=== PATIENT | female | born 1970 | race African-American/Black ===

== ENCOUNTER 2017-08-11 19:02 | Emergency (ER) | payer OTHER ==
[2017-08-11] MEDS ORDERED: diphenhydrAMINE HCl 50 MG/ML 1 ML VIAL ONE (20:40)
[2017-08-11] MEDS ORDERED: Metoclopramide HCl 10 MG/2 ML VIAL ONE (20:40)
[2017-08-11] MEDS ORDERED: Ketorolac Tromethamine 30 MG/ML VIAL ONE (20:40)
[2017-08-11 21:18] LABS: Anion Gap 12 mmol/L (10-20); BUN (Urea Nitrogen) 9 mg/dL (7.0-18.7); Calc. Creatinine Clearance 0 mL/min (70-130); Calcium 9.3 mg/dL (7.8-10.44); Carbon Dioxide 29 mmol/L (22-29); Chloride 101 mmol/L (98-107); Estimated GFR-MDRD Greater than 90
[2017-08-11 21:20] LABS: Band 2 % (5-11); Hematocrit 41.7 % (36.0-47.0); Mean Platelet Volume 8.6 fL (7.4-10.4); Neutrophil 40 % (42-75); Reactive Lymphocytes 3 % (0-10); Red Blood Cell (RBC) Count 4.87 mill/uL (4.20-5.40); White Blood Cell (WBC) Count 7.3 thou/uL (4.8-10.8)
[2017-08-11] MEDS ORDERED: Morphine Sulfate 2 MG/ML SYRINGE ONE (22:55)
== END 2017-08-11 23:57 | disposition home or self-care (01) ==
LOC: ERS 19:02
DX: M75.92 Shoulder lesion, unspecified, left shoulder (principal); M06.9 Rheumatoid arthritis, unspecified; E11.40 Type 2 diabetes mellitus with diabetic neuropathy, unspecified; J44.9 Chronic obstructive pulmonary disease, unspecified; G43.909 Migraine, unspecified, not intractable, without status migrainosus; F31.9 Bipolar disorder, unspecified; F41.9 Anxiety disorder, unspecified; F17.210 Nicotine dependence, cigarettes, uncomplicated; Z79.899 Other long term (current) drug therapy
CPT/HCPCS: 80048; 85025; 96365; 96375; J1200; J1885; J2270; J2765

== ENCOUNTER 2017-10-06 13:48 | Observation (INO) | payer OTHER ==
[2017-10-06 14:15] LABS: #Lymphocytes 3.4 thou/uL (1.20-3.40); #Monocytes 0.4 thou/uL (0.11-0.59); #Neutrophils 3.1 thou/uL (1.40-6.50); %Basophils 0.1 % (0.0-1.0); %Eosinophils 0.7 % (0.0-10.0); %Lymphocytes 49.9 % (21.0-51.0); Hematocrit 41.6 % (36.0-47.0); Mean Platelet Volume 8.9 fL (7.4-10.4); Red Blood Cell (RBC) Count 4.79 mill/uL (4.20-5.40); White Blood Cell (WBC) Count 6.9 thou/uL (4.8-10.8)
[2017-10-06] MEDS ORDERED: Acetaminophen 500 MG TAB ONE (14:15)
[2017-10-06] MEDS ORDERED: Clopidogrel Bisulfate 75 MG TAB ONE (14:15)
[2017-10-06] MEDS ORDERED: Nitroglycerin 2% Ointment 1 INCH/1 GM Packet ONE (14:15)
[2017-10-06 14:34] LABS: Troponin I Less than 0.010 ng/mL (< 0.028)
--- NOTE | 2017-10-06 14:38 | RAD ---
SINGLE VIEW OF THE CHEST: COMPARISON: 09/25/15. HISTORY: Chest pain that began 40 minutes prior to arrival. FINDINGS: Single view of the chest shows a normal sized cardiomediastinal silhouette. There is no evidence of c onsolidation, mass, or pleural effusion. The bones are unremarkable. IMPRESSION: No evidence of acute cardiopulmonary disease. POS: [facility]
[2017-10-06 15:13] LABS: ALT (SGPT) 10 U/L (8-55); AST (SGOT) 13 U/L (5-34); Alkaline Phosphatase 83 U/L (40-150); Anion Gap 10 mmol/L (10-20); BUN (Urea Nitrogen) 9 mg/dL (7.0-18.7); Bilirubin, Total 0.2 mg/dL (0.2-1.2); CK (CPK) 97 U/L (29-168); Calc. Creatinine Clearance 0 mL/min (70-130); Carbon Dioxide 25 mmol/L (22-29); Chloride 104 mmol/L (98-107); Estimated GFR-MDRD Greater than 90; Lipase 15 U/L (8-78); Protein, Total 7.6 g/dL (6.0-8.3)
[2017-10-06] MEDS ORDERED: Bisacodyl 5 MG TAB PO PRN (17:00)
[2017-10-06] MEDS ORDERED: Dextrose 5% in Water 1,000 ML IV PRN (17:00)
[2017-10-06] MEDS ORDERED: Acetaminophen 325 MG TAB PO PRN (17:00)
[2017-10-06] MEDS ORDERED: Dextrose 50% Abboject 50 ML SYRINGE SLOW IVP PRN (17:00)
[2017-10-06] MEDS ORDERED: HumaLOG 300 UNITS/3 ML VIAL SC PRN (17:00)
[2017-10-06 17:03] VITALS: BMI 34.8
[2017-10-06] MEDS ORDERED: Lidocaine 2% Viscous Solution 20 ML, Aluminum & Magnesium Hydroxide 30 ML, Donnatal Eli... SSW SCH ×3 (17:15)
[2017-10-06 18:13] LABS: Hemoglobin A1c 8.6 % (4.0-6.0)
[2017-10-06 18:30] LABS: Magnesium 2.9 mg/dL (1.6-2.6); Phosphorus 2.8 mg/dL (2.3-4.7)
[2017-10-06 18:35] LABS: Troponin I 0.011 ng/mL (< 0.028)
--- NOTE | 2017-10-06 19:20 | HP-2 ---
CODE STATUS: FULL. PRIMARY CARE PHYSICIAN: Dr. Shine Conn. ATTENDING PHYSICIAN: Kevin Reeves M.D. RESIDENT PHYSICIAN: Winsome Diehl DO CHIEF COMPLAINT: Chest pain. HISTORY OF PRESENT ILLNESS: This is a 47-year-old female with past medical history of uncontrolled diabetes mellitus type 2, tobacco abuse, hyperlipidemia, hypertension, COPD that presents with substernal chest pain with sudden onset at 1300. This afternoon, the pain did start at rest and radiated to the right breast. Associated symptoms include abdominal pain and bloating. The patient denied any nausea, vomiting, diarrhea or diaphoresis. She also denied any shortness of breath. The patient states that the pain was relieved after she took some Tylenol and was given medication by EMS. The patient was given nitro and aspirin. The patient has had similar pain previously. Her last stress test was in 09/2017, which was normal at that time. Of note, the patient has had a lot of stress and anxiety recently. She is going through a divorce currently and has been very emotional. She was very emotional with onset of this chest pain. The patient also endorses a 30-pound weight loss over the last 2-3 months due to decreased appetite. PAST MEDICAL HISTORY: 1. COPD. 2. Uncontrolled diabetes mellitus type 2. 3. Bipolar disorder. 4. Tobacco abuse. 5. Gastroesophageal reflux disease. 6. Rheumatoid arthritis. 7. Fibromyalgia. 8. Migraines. 9. Irritable bowel syndrome. 10. Grade 1/3 diastolic congestive heart failure with preserved ejection fraction detected on last echo 09/29/2015. 11. Hyperlipidemia. 12. Hypertension. PAST SURGICAL HISTORY: 1. x1. 2. Ex-lap x2. 3. Hysterectomy in 2001. 4. History of uterine cancer. 5. Several ganglion cyst removal. ALLERGIES: 1. MORPHINE. 2. BACTRIM. 3. TORADOL. 4. SEROQUEL. 5. PROPRANOLOL. 6. IBUPROFEN. MEDICATIONS: 1. Xanax 2 mg daily. 2. Protonix 40 mg daily. 3. Symbicort 80/4.5 mcg 2 puffs inhalation daily. 4. Xopenex 0.63/3 mL 2 puffs q.6 hours as needed. 5. Mirtazapine 50 mg daily. 6. Dicyclomine 10 mg p.r.n. q.6 hours. 7. Gabapentin 300 mg at bedtime. 8. Zofran 4 mg p.r.n. 9. Glimepiride 1 mg. Of note, the patient is noncompliant with medications. She only takes them when she sees necessary. FAMILY HISTORY: Father with a myocardial infarction at age 56 and hypertension , and her mother with diabetes and hypertension. SOCIAL HISTORY: The patient has a greater than half pack per day tobacco use, [id number] history. She uses alcohol occasionally and has a history of marijuana abuse. REVIEW OF SYSTEMS: A 12 point review of systems was performed and were negative except as listed in HPI and as indicated below. The patient does endorse nasal congestion and cough. PHYSICAL EXAMINATION: VITAL SIGNS: Blood pressure 131/76, pulse 64, respiration rate 22, T-max 98.1, pulse ox 98% on room air. Current weight 91 kilograms. GENERAL: The patient is alert and oriented x3, no acute distress, well developed, well nourished, obese. She does have some tangential thinking. EYES: Pupils equally round, reactive to light and accommodation. Extraocular muscles intact. Conjunctivae within normal limits. ENT: Nasal mucosa within normal limits. NECK: Supple. CARDIOVASCULAR: Regular rate and rhythm. No murmurs or gallops. Radial and pedal pulses 2+. RESPIRATORY: Normal respiratory effort, no retractions, clear to auscultation bilaterally. SKIN: Warm and dry. No cyanosis. No lesions. ABDOMEN: Soft, mildly tender to palpation in the left lower quadrant. Bowel sounds present in all 4 quadrants. No masses or distention. EXTREMITIES: No clubbing, cyanosis or edema. MUSCULOSKELETAL: Structure within normal limits. Tone within normal limits. Muscle strength 5/5. Full range of motion. NEUROLOGIC: No focal deficits. Cranial nerves II-XII intact. GCS 15. PSYCHIATRIC: Tangential speaking. LABORATORY DATA: 1. CBC reveals a white blood cell count 6.9, hemoglobin 13.3, hematocrit 41.6, platelets 194. 2. CMP reveals sodium 135, potassium 4.0, chloride 104, bicarbonate 25, BUN 9, creatinine 7.75, glucose of 251, calcium 9.0, total protein 7.6, albumin 3.6, total bilirubin 0.2, AST 13, ALT 10, and alkaline phosphatase of 83. 3. CK 97. 4. CK-MB 0.8, troponin less than 0.01. 5. Lipase 15. 6. Chest x-ray no evidence of acute cardiopulmonary disease. 7. EKG: There is normal sinus rhythm. 8. Last stress test done in 2014. ASSESSMENT AND PLAN: This is a 47-year-old female with past medical history of uncontrolled diabetes mellitus, hypertension, hyperlipidemia, and tobacco abuse that presents with chest pain. 1. Atypical chest pain. Admit to observations, trend cardiac enzymes. Hemoglobin A1c, TSH, magnesium, phosphate and fasting lipid panel are pending. The patient will have a nuclear stress test in the a.m. She was given a consistent carb diet and will be made n.p.o. at midnight. The patient does have a heart score of 3. Last hemoglobin A1c was in 02/2017, it was 9.1 at that time. Continue ASA daily. 2. Diabetes mellitus type 2, uncontrolled. Hemoglobin A1c pending. The patient needs to be started on a statin and EMILIE-I. We will restart home medications. The patient was placed on mild sliding scale insulin and hypoglycemia protocol. 3. Chronic obstructive pulmonary disease. We will continue the patient on home medications and start DuoNebs p.r.n. 4. Tobacco abuse. The patient had nicotine patch p.r.n. 5. Hyperlipidemia. The patient not currently on statin therapy. We will consider adding to regimen. 6. Obesity. Counseled on diet and exercise. 7. Diastolic congestive heart failure with preserved ejection fraction. Last echo done in 09/2015. The patient not currently being treated for heart failure. 8. Bipolar disorder, not currently being treated. 9. Deep venous thrombosis prophylaxis, SCDs. DISPOSITION AND LENGTH OF HOSPITAL STAY: 2 days. Symptomatic medications will be provided. History and physical exam as well as management discussed with Dr. Kevin Reeves. YUE
[2017-10-06] MEDS ORDERED: PROVENTIL INHALER 6.7 G (200 INHALATIONS) INH PRN (20:25)
[2017-10-06] MEDS ORDERED: Topiramate 25 MG TAB PO PRN (20:25)
[2017-10-06] MEDS ORDERED: Dicyclomine 20 MG TAB PO PRN (20:25)
[2017-10-06] MEDS ORDERED: Ondansetron ODT 4 MG TAB PO PRN (20:25)
[2017-10-06 20:46] LABS: Troponin I Less than 0.010 ng/mL (< 0.028)
[2017-10-06] MEDS ORDERED: Gabapentin 300 MG CAP PO SCH (21:00)
[2017-10-06] MEDS ORDERED: Cyclobenzaprine 10 MG TAB PO PRN (22:39)
--- NOTE | 2017-10-07 06:15 | PDOC.FM ---
- Subjective Subjective: Patient states she had a good night. She denies any further episodes of chest pain. Her only complaint this morning is a cough. She denies any n/v/d. She denies sob, fever, or chills. She is waiting for the stress test this morning. - Objective Vital Signs & Weight: Vital Signs (12 hours) Temp Pulse Resp BP Pulse Ox 10/07/17 04:30 97.8 F 64 18 103/54 L 95 10/06/17 20:00 97.5 F L 69 16 10/06/17 19:22 97.5 F L 69 16 111/57 L 95 Weight Admit Weight 97.976 kg Weight 97.976 kg I&O: 10/05/17 10/06/17 10/07/17 06:59 06:59 06:59 Intake Total 240 Balance 240 Result Diagrams: 10/06/17 14:02 10/06/17 14:32 Phys Exam - Physical Examination HEENT: PERRLA, moist MMs Neck: no nodes, no JVD Respiratory: no wheezing, clear to auscultation bilateral Cardiovascular: RRR, no significant murmur Gastrointestinal: soft, non-tender, no distention, positive bowel sounds Musculoskeletal: no edema, pulses present Neurological: non-focal, normal sensation, moves all 4 limbs Psychiatric: normal affect, A&O x 3 Skin: no rash Dx/Plan (1) Atypical chest pain Code(s): R07.89 - OTHER CHEST PAIN Status: Acute Plan: -Plan for NM stress this AM. -If normal patient will be discharged home. (2) DM2 (diabetes mellitus, type 2) Status: Acute Plan: -HgbA1C 8.6 -SSI and accuchecks (3) COPD (chronic obstructive pulmonary disease) Status: Acute Plan: -Continue home medications (4) HLD (hyperlipidemia) Code(s): E78.5 - HYPERLIPIDEMIA, UNSPECIFIED Status: Acute Plan: -Will initiate Statin therapy (5) Obesity Code(s): E66.9 - OBESITY, UNSPECIFIED Status: Acute Plan: -Counseled on diet and exercise (6) Diastolic CHF Code(s): I50.30 - UNSPECIFIED DIASTOLIC (CONGESTIVE) HEART FAILURE Status: Acute Plan: -Last echo in 2014 -Not currently symptomatic -Will recommend outpatient follow up. (7) Bipolar disorder Code(s): F31.9 - BIPOLAR DISORDER, UNSPECIFIED Status: Acute Plan: -Not currently medicated. -Will recommend outpatient follow up for this. - Plan Plan: Patient can be discharged today if stress is normal.
[2017-10-07] MEDS ORDERED: Mometasone/Formoterol 120 PUFF INHALER INH SCH (06:30)
[2017-10-07 07:45] VITALS: TEMP 97.6
[2017-10-07] MEDS ORDERED: Lorazepam 0.5 MG TAB PO PRN (08:57)
[2017-10-07] MEDS ORDERED: Aspirin 81 mg Enteric Coated Tablet PO SCH (09:00)
[2017-10-07] MEDS ORDERED: Mirtazapine 15 MG TAB PO SCH (09:00)
[2017-10-07 11:49] VITALS: BP 112/57
--- NOTE | 2017-10-07 11:56 | NM ---
CARDIAC PERFUSION SCAN: Technique: Patient was given 9.4 mCi Technetium 99M Sestamibi for rest imaging and 31 mCi for stress imaging. History: Chest pain. FINDINGS: Patient was stressed according the [place] scan protocol. Left ventricle was imaged with SPECT imaging a nd CT attenuation images obtained. Normal activity is seen throughout the left ventricle on stress and rest images. No evidence of rever sible ischemia. Wall motion is normal. Ejection fraction recorded at 64%. IMPRESSION: Negative Sestamibi stress test. POS: [facility]
--- NOTE | 2017-10-07 12:15 | ADD-PRG ---
DATE OF SERVICE: 10/07/2017 This is an addendum to the note of Dr. Demario Appiah. Ms. Burnett is a 47-year-old black female patient with a history of poorly controlled type 2 diabete s, tobacco abuse, hyperlipidemia, hypertension and COPD. She presented with substernal chest pain as sociated with some abdominal pain and bloating. She denied any nausea, vomiting or diaphoresis. She has been admitted for nuclear stress testing. Thus far, her troponins are less than 0.01 x3. He r BMP shows a sodium 135, potassium 4, chloride 104, bicarbonate 25, anion gap 10, BUN 9, creatinine 0.79. Glucose 251. Her admission EKG was normal showing no ischemic changes. After her nuclear str ess test she can be discharged and/or taken to cardiac catheterization depending on the results.
[2017-10-07] MEDS ORDERED: Regadenoson 0.4 MG/5 ML SYRINGE ONE (17:48)
--- NOTE | 2017-10-07 18:20 | DIS-2 ---
DATE OF ADMISSION: 10/06/2017 DATE OF DISCHARGE: 10/07/2017 RESIDENT: Demario Appiah M.D. ADMITTING ATTENDING: Hal Leger M.D. DISCHARGE ATTENDING: Hal Leger M.D. CONSULTATIONS: None. PROCEDURES: The patient did have a chest x-ray on 10/06/2017 that showed normal size cardiomediastinal silhouette. There is no evidence of consolidation mass or pleural effusion. The bones are unremarkable. She also underwent a stress test nuclear medicine on 10/07/2017 that showed a negative sestamibi stress test that showed normal activity seen throughout the left ventricle on stress and rest imaging, no evidence of reversible ischemia, wall motion is normal, ejection fraction recorded at 64%. PRIMARY DIAGNOSES: 1. Atypical chest pain. 2. Diabetes mellitus, type 2. 3. Chronic obstructive pulmonary disease. 4. Hyperlipidemia. 5. Obesity. 6. Diastolic congestive heart failure. 7. Bipolar disorder. DISCHARGE MEDICATIONS: 1. Atorvastatin 40 mg. 2. Lisinopril 5 mg. 3. Xopenex 15 grams inhaler. 4. Zofran 4 mg. 5. Symbicort 60 mg/4.5 mg. 6. Alprazolam 2 mg t.i.d. 7. [place] 10/325 mg. 8. Glimepiride 1 mg. 9. Mirtazapine 15 mg. 10. Gabapentin 300 mg. 11. Flexeril 10 mg t.i.d. 12. Topiramate 25 mg b.i.d. 13. Protonix 40 mg. 14. Bentyl 10 mg. DISCONTINUED MEDICATIONS: None. HISTORY OF PRESENT ILLNESS AND HOSPITAL COURSE: This is a 47-year-old - Syrian female with past medical history of uncontrolled diabetes mellitus type 2, tobacco abuse, hyperlipidemia, hypertension, COPD that presents with substernal chest pain that began suddenly at 1300. This afternoon the pain did start at rest and radiated to the right breast. Associated symptoms include abdominal pain, bloating. The patient denied any nausea, vomiting, diarrhea or diaphoresis. The patient also denied any shortness of breath. The patient states the pain was relieved after she took Tylenol and was given medication by EMS. The patient was given nitroglycerin and aspirin. The patient has had similar pain previously. Her last stress test was in 09/2017, which was normal at that time. Of note, the patient has had lot of stress and anxiety recently. She is going through divorce, currently has been very emotional. She was very emotional with the onset of this chest pain. The patient also endorses 30 pound weight loss for the last 2-3 months due to decreased appetite. During this hospitalization, the patient was asymptomatic, did not have any of the pain, recurrence. She had notable lab values of troponin I of less than 0.01 x2 and also had a hemoglobin A1c of 8.6. A triglyceride level of 248, TSH of 1.149, magnesium of 2.9, phosphorus of 2.8 and a creatinine that was 0.79. The patient otherwise had no other complications of his hospitalization. The patient underwent a nuclear medicine stress test that showed no reversible ischemia and ejection fraction of 64%. The patient's only complaint during the hospitalization was a cough, but that did not need to be treated at this time. The patient was not on a statin therapy since she is a diabetic we did initiate statin therapy going forward as an outpatient for her to follow up with her PCP. She was also started on an EMILIE inhibitor, specifically lisinopril for her diastolic heart failure that was diagnosed previously going forward as well as for diabetes and kidney function. Again, the patient tolerated the hospitalization well and was discharged on appropriate condition. DISPOSITION: Stable. DISCHARGE INSTRUCTIONS: 1. Location: This patient will be discharged home into her own care. 2. Diet will be a heart healthy diet as well as diabetic diet. 3. Activity will be as tolerated with no restrictions. 4. Follow up will be with her primary care provider, Dr. Conn within 7 days to discuss the initiation of the statin therapy as well as the EMILIE inhibitor and treatments going forward for her chronic conditions. We wish her the best of luck and hope she has no further problems in this condition. YUE
--- NOTE | 2017-10-25 10:49 | STRESS ---
Acquisition Time: 2017-10-07 09:54:17 Total Exercise Time: 00:01:00 Test Indications: CHEST PAIN Medications: Protocol: LEXISC[place] Max HR: 116 BPM 66% of Pred: 175 BPM Max BP: 144/076 mmHG Max Work Load: 1.0 METS RESTING ECG: NORMAL SINUS RHYTHM AT 64 BPM WITH POOR R-WAVE PROGRESSION SYMPTOMS: SHORTNESS OF BREATH NORMAL BP RESPONSE ECTOPY: NONE ECG STRESS: NO SIGNIFICANT CHANGES INTERPRETATION: AWAIT NUCLEAR IMAGES FOR DEFINITIVE DIAGNOSIS Confirmed by ALYSON RAMIREZ (2), film editor supervisor LY MATHEW ([id number]) on 10/25/2017 10:49:21 AM Referred By: MD Atul MIR Confirmed By:ALYSON RAMIREZ
== END 2017-10-07 13:34 | disposition home or self-care (01) ==
LOC: ERS 13:48 → 2SW 15:25
PROVIDERS: ADMIT Family Medicine; ATTEND Family Medicine
DX: R07.89 Other chest pain (principal); J44.9 Chronic obstructive pulmonary disease, unspecified; I11.0 Hypertensive heart disease with heart failure; I50.30 Unspecified diastolic (congestive) heart failure; E78.5 Hyperlipidemia, unspecified; K58.9 Irritable bowel syndrome, unspecified; G43.909 Migraine, unspecified, not intractable, without status migrainosus; M06.9 Rheumatoid arthritis, unspecified; K21.9 Gastro-esophageal reflux disease without esophagitis; F17.200 Nicotine dependence, unspecified, uncomplicated; F31.9 Bipolar disorder, unspecified; E66.9 Obesity, unspecified; Z68.34 Body mass index [BMI] 34.0-34.9, adult; Z79.84 Long term (current) use of oral hypoglycemic drugs; Z79.899 Other long term (current) drug therapy; Z88.5 Allergy status to narcotic agent; Z88.6 Allergy status to analgesic agent; Z88.8 Allergy status to other drugs, medicaments and biological substances; Z98.890 Other specified postprocedural states
CPT/HCPCS: 36415; 36416; 71010; 78452; 80053; 80061; 82550; 82553; 83036; 83690; 83735; 84100; 84443; 84484; 85025; 93005; 93017; 94760; 99406; A4216; A9500; G0378; J2785

== ENCOUNTER 2017-12-09 13:26 | Emergency (ER) | payer OTHER ==
--- NOTE | 2017-12-09 14:16 | RAD ---
CHEST 1 VIEW: HISTORY: Chest pain. COMPARISON: 10/06/17. FINDINGS: Cardiac silhouette is magnified by projection. Pulmonary vasculature is unremarkable. Mediastinum i s midline. No lobar consolidation or evidence of pneumothorax. IMPRESSION: 1. No active cardiopulmonary abnormalities are demonstrated. POS: [facility]
[2017-12-09 14:26] LABS: #Basophils 0.1 thou/uL (0.0-0.2); #Lymphocytes 2.9 thou/uL (1.20-3.40); #Monocytes 0.3 thou/uL (0.11-0.59); #Neutrophils 3.7 thou/uL (1.40-6.50); %Basophils 1.4 % (0.0-1.0); %Eosinophils 0.5 % (0.0-10.0); %Lymphocytes 41.2 % (21.0-51.0); %Monocytes 4.1 % (0.0-10.0); %Neutrophils 52.9 % (42.0-75.0); Hemoglobin 13.8 g/dL (12.0-16.0); Mean Corpuscular HGB CONC 32.2 g/dL (32.0-36.0); Mean Corpuscular Hemoglobin 26.9 pg (27.0-31.0); Mean Corpuscular Volume 83.4 fl (81.0-99.0); Mean Platelet Volume 8.8 fL (7.4-10.4); Platelet Count 211 thou/uL (130-400); RBC Distribution Width 13.6 % (11.5-14.5); Red Blood Cell (RBC) Count 5.14 mill/uL (4.20-5.40)
[2017-12-09 14:32] LABS: PTT 29.8 SEC (22.9-36.1); Prothrombin Time 13.5 SEC (12.0-14.7)
[2017-12-09 14:47] LABS: ALT (SGPT) 15 U/L (8-55); AST (SGOT) 11 U/L (5-34); Albumin 4.1 g/dL (3.5-5.0); Alkaline Phosphatase 106 U/L (40-150); Anion Gap 12 mmol/L (10-20); BUN (Urea Nitrogen) 12 mg/dL (7.0-18.7); Bilirubin, Total 0.3 mg/dL (0.2-1.2); CK (CPK) 163 U/L (29-168); Calc. Creatinine Clearance 0 mL/min (70-130); Calcium 9.6 mg/dL (7.8-10.44); Carbon Dioxide 23 mmol/L (22-29); Chloride 103 mmol/L (98-107); Estimated GFR-MDRD Greater than 90; Globulin 4.1 g/dL (2.4-3.5); Glucose 218 mg/dL (70-105); Lipase 19 U/L (8-78); Potassium 3.8 mmol/L (3.5-5.1); Protein, Total 8.2 g/dL (6.0-8.3); Sodium 134 mmol/L (136-145)
[2017-12-09 14:51] LABS: Troponin I Less than 0.010 ng/mL (< 0.028)
[2017-12-09 16:40] LABS: Troponin I Less than 0.010 ng/mL (< 0.028)
--- NOTE | 2017-12-29 15:12 | EKG ---
Test Reason : Blood Pressure : / mmHG Vent. Rate : 097 BPM Atrial Rate : 097 BPM P-R Int : 152 ms QRS Dur : 072 ms QT Int : 370 ms P-R-T Axes : 054 -06 030 degrees QTc Int : 469 ms Normal sinus rhythm Cannot rule out Anterior infarct , age undetermined Abnormal ECG Confirmed by ZANA NICHOLS ([id number]), associate entertainment editor SOPHIE CINTRON ([id number]) on 12/29/2017 3:12:09 PM Referred By: Confirmed By:ZANA NICHOLS
== END 2017-12-09 17:11 | disposition home or self-care (01) ==
LOC: ERS 13:26
DX: R07.9 Chest pain, unspecified (principal); F41.9 Anxiety disorder, unspecified; E78.5 Hyperlipidemia, unspecified; M06.9 Rheumatoid arthritis, unspecified; J44.9 Chronic obstructive pulmonary disease, unspecified; E11.40 Type 2 diabetes mellitus with diabetic neuropathy, unspecified; G43.909 Migraine, unspecified, not intractable, without status migrainosus; F31.9 Bipolar disorder, unspecified; F17.210 Nicotine dependence, cigarettes, uncomplicated; Z85.42 Personal history of malignant neoplasm of other parts of uterus
CPT/HCPCS: 36415; 71045; 80053; 82550; 82553; 83690; 84484; 85025; 85610; 85730; 93005; 94760

== ENCOUNTER 2018-04-04 13:42 | Outpatient (CLI) | payer OTHER ==
[2018-04-04 14:33] LABS: Hemoglobin 13.9 g/dL (12.0-16.0); Mean Corpuscular HGB CONC 32.3 g/dL (32.0-36.0); Mean Corpuscular Volume 83.6 fl (81.0-99.0); Mean Platelet Volume 8.9 fL (7.4-10.4); Platelet Count 202 thou/uL (130-400); RBC Distribution Width 13.5 % (11.5-14.5); Red Blood Cell (RBC) Count 5.15 mill/uL (4.20-5.40); White Blood Cell (WBC) Count 5.7 thou/uL (4.8-10.8)
== END 2018-04-04 13:43 | disposition home or self-care (01) ==
LOC: LABBT 13:42
PROVIDERS: ATTEND Orthopaedic Surgery
DX: Z01.812 Encounter for preprocedural laboratory examination (principal); G56.02 Carpal tunnel syndrome, left upper limb; M67.432 Ganglion, left wrist
CPT/HCPCS: 85027

== ENCOUNTER → 2018-04-06 | Day surgery (SDC) | payer OTHER ==
[2018-04-04 14:07] VITALS: BMI 32.8
[~2018-04-06] MED LIST: Bupivacaine HCl 0.5%/Epinephrine 1:200,000/PF 30 ml Vial ONE; CEFAZOLIN/Water 2 GM/20 ML SYRINGE ONE; Dexamethasone 20 MG/5 ML VIAL ONE; Fentanyl 100 MCG/2 ML VIAL ONE; HYDROmorphone 0.5 MG/0.5 ML SYRINGE ONE; Lidocaine 1% PF 5 ML VIAL ONE; Midazolam HCl 2 mg/2 ml Vial ONE; Neomycin-Polymyxin 1 ML AMP ONE; Ondansetron HCl/PF 4 MG/2 ML Vial ONE; PROPOFOL 200 MG/20 ML VIAL ONE
--- NOTE | 2018-04-06 17:20 | OP ---
DATE OF OPERATION: 04/06/2018 PREOPERATIVE DIAGNOSES: 1. Carpal tunnel syndrome. 2. Ganglion cyst on the volar radial aspect of the left wrist. POSTOPERATIVE DIAGNOSES: 1. Carpal tunnel syndrome. 2. Ganglion cyst on the volar radial aspect of the left wrist. PROCEDURES: 1. Left carpal tunnel release. 2. Excision of ganglion cyst from the flexor tendon sheath of the flexor carpi radialis tendon of th e left wrist. SURGEON: Toby Kong M.D. ANESTHESIA: General. TECHNIQUE: The patient was given preoperative IV antibiotics, taken to the operating room, placed in the supine position. Satisfactory general anesthesia was performed. The left upper extremity was s terilely prepped and draped in the usual fashion. After exsanguination, the tourniquet was raised to 250 mmHg. Initially, an incision was made longitudinally approximately 1.5 cm in length over the vol ar radial aspect of the left wrist in the area of the flexor carpi radialis tendon. Blunt dissection was made and the small ganglion cyst was identified on the volar and radial aspect of the flexor ten don sheath. This was removed with scissors. The underlying flexure carpi radialis tendon looked becky y healthy. The radial artery was identified and carefully retracted radially out of the way. After the ganglion cyst was completely removed, the wound was irrigated with antibiotic solution and then c losed using 3-0 Rapide. A 14-mm curvilinear incision was then made at the base of the left hand over the carpal canal. Blunt and sharp dissection was made down through the palmar fascia down to the me ludmila nerve using the [employer] [place] carpal tunnel release instruments. The interval between the medi an nerve and the transverse carpal ligament was developed and then between the transverse carpal liga ment and the palmar fascia. The [place] tome scalpel was then used to cut the transverse carpal liga ment, making sure that there was no constrictive tissue into the palm or into the wrist joint. The m edian nerve was directly visualized and was completely freed. The wound was irrigated with antibioti c solution and then closed using 3-0 Rapide. The wounds were then infiltrated with a total of 20 mL of 0.5% Marcaine with epinephrine. Sterile dressing was applied. The patient was awakened, extubate d and transferred to the recovery room in stable condition. ESTIMATED BLOOD LOSS: 25 mL COMPLICATIONS: None. DISCHARGE MEDICATIONS: [place] 10 one every 6 hours as needed for pain, #50. Follow up in my office in 1 week.
== END ==
LOC: SDC 11:53
PROVIDERS: ATTEND Orthopaedic Surgery
PROC: 01N50ZZ Release Median Nerve, Open Approach (ICD-10-PCS; principal; 2018-04-06)
PROC: 0LB60ZZ Excision of Left Lower Arm and Wrist Tendon, Open Approach (ICD-10-PCS; principal; 2018-04-06)
DX: G56.02 Carpal tunnel syndrome, left upper limb (principal); M67.432 Ganglion, left wrist; J45.909 Unspecified asthma, uncomplicated; E11.9 Type 2 diabetes mellitus without complications; M19.90 Unspecified osteoarthritis, unspecified site; Z88.2 Allergy status to sulfonamides; Z88.5 Allergy status to narcotic agent; Z88.8 Allergy status to other drugs, medicaments and biological substances
CPT/HCPCS: 36416; 96374; J0670; J1100; J1170; J2001; J2250; J2405; J2704; J3010

== ENCOUNTER 2018-07-11 13:35 | Outpatient (CLI) | payer OTHER | END 2018-07-11 13:36 | disposition home or self-care (01) | LOC: BICRAD 13:35 | PROVIDERS: ATTEND Family Medicine | DX: M25.562 Pain in left knee (principal); M17.12 Unilateral primary osteoarthritis, left knee ==

== ENCOUNTER 2018-10-11 18:18 | Emergency (ER) | payer OTHER ==
[2018-10-11] MEDS ORDERED: Ondansetron ODT 4 MG TAB ONE (19:24)
[2018-10-11] MEDS ORDERED: Diazepam 5 MG TAB ONE (19:28)
== END 2018-10-11 19:46 | disposition home or self-care (01) ==
LOC: ERS 18:18
DX: M54.12 Radiculopathy, cervical region (principal); E78.5 Hyperlipidemia, unspecified; E11.40 Type 2 diabetes mellitus with diabetic neuropathy, unspecified; J44.9 Chronic obstructive pulmonary disease, unspecified; G43.909 Migraine, unspecified, not intractable, without status migrainosus; F41.9 Anxiety disorder, unspecified; F31.9 Bipolar disorder, unspecified; F17.210 Nicotine dependence, cigarettes, uncomplicated; Z79.899 Other long term (current) drug therapy
CPT/HCPCS: 99283; Q0162

== ENCOUNTER 2019-01-20 17:55 | Emergency (ER) | payer OTHER ==
--- NOTE | 2019-01-20 19:20 | CT ---
FCT head without contrast: Multiple axial tomograms obtained through the head without IV enhancement. INDICATIONS: Headache COMPARISON: None FINDINGS: Ventricles have normal size and position. No evidence of intracranial mass, hemorrhage, edema, or infarct. Visualized sinuses and mastoids appear clear. Bony calvarium appears unremarkable. IMPRESSION: No acute finding
[2019-01-20] MEDS ORDERED: Magnesium 2 GM/50 ML BAG (IN WATER) ONE (19:29)
[2019-01-20] MEDS ORDERED: diphenhydrAMINE 50 MG/ML VIAL ONE (19:29)
[2019-01-20] MEDS ORDERED: Metoclopramide HCl 10 MG/2 ML VIAL ONE (19:29)
[2019-01-20] MEDS ORDERED: Lidocaine 1% (PF) 30 ML VIAL ONE (19:30)
[2019-01-20] MEDS ORDERED: Lidocaine 1% w/Epinephrine 1:100K 20 ML VIAL ONE (19:30)
[2019-01-20 19:42] LABS: #Basophils 0.1 thou/uL (0.0-0.2); #Lymphocytes 3.8 thou/uL (1.20-3.40); #Monocytes 0.4 thou/uL (0.11-0.59); #Neutrophils 3.5 thou/uL (1.40-6.50); %Basophils 1.1 % (0.0-1.0); %Eosinophils 0.6 % (0.0-10.0); %Lymphocytes 48.6 % (21.0-51.0); %Monocytes 5.1 % (0.0-10.0); %Neutrophils 44.6 % (42.0-75.0); Hemoglobin 13.7 g/dL (12.0-16.0); Mean Corpuscular HGB CONC 31.9 g/dL (32.0-36.0); Mean Corpuscular Hemoglobin 27.2 pg (27.0-31.0); Mean Corpuscular Volume 85.2 fL (78.0-98.0); Mean Platelet Volume 8.9 fL (7.4-10.4); Platelet Count 195 thou/uL (130-400); RBC Distribution Width 13.2 % (11.5-14.5); Red Blood Cell (RBC) Count 5.04 mill/uL (4.20-5.40); White Blood Cell (WBC) Count 7.9 thou/uL (4.8-10.8)
[2019-01-20 19:55] LABS: Bilirubin Negative (Negative); Blood, Urine Negative (Negative); Clarity CLEAR (Clear); Glucose, Urine (Dipstick) 100 mg/dL (Negative); Leukocyte Negative (Negative); Nitrite Negative (Negative); Protein, Urine (Dipstick) Negative (Neg-Trace); Specific Gravity, Urine 1.022 (1.002-1.036)
[2019-01-20 20:05] LABS: ALT (SGPT) 12 U/L (8-55); AST (SGOT) 11 U/L (5-34); Albumin 4.1 g/dL (3.5-5.0); Alkaline Phosphatase 89 U/L (40-150); Anion Gap 12 mmol/L (10-20); BUN (Urea Nitrogen) 12 mg/dL (7.0-18.7); Bilirubin, Total 0.3 mg/dL (0.2-1.2); Calc. Creatinine Clearance 0 mL/min (70-130); Calcium 9.7 mg/dL (7.8-10.44); Carbon Dioxide 29 mmol/L (22-29); Chloride 103 mmol/L (98-107); Estimated GFR-MDRD 68; Globulin 3.8 g/dL (2.4-3.5); Glucose 180 mg/dL (70-105); Potassium 4.6 mmol/L (3.5-5.1); Protein, Total 7.9 g/dL (6.0-8.3); Sodium 139 mmol/L (136-145)
[2019-01-20] MEDS ORDERED: Ondansetron PF 4 MG/2 ML Vial ONE (20:20)
== END 2019-01-20 21:10 | disposition home or self-care (01) ==
LOC: ERS 17:55
DX: G43.909 Migraine, unspecified, not intractable, without status migrainosus (principal); E78.5 Hyperlipidemia, unspecified; E11.40 Type 2 diabetes mellitus with diabetic neuropathy, unspecified; J44.9 Chronic obstructive pulmonary disease, unspecified; F41.9 Anxiety disorder, unspecified; F31.9 Bipolar disorder, unspecified; F17.210 Nicotine dependence, cigarettes, uncomplicated; Z79.899 Other long term (current) drug therapy; Z79.51 Long term (current) use of inhaled steroids
CPT/HCPCS: 36415; 70450; 80053; 81003; 85025; 96365; 96367; 96375; J1200; J2001; J2405; J2765; J3475

== ENCOUNTER 2019-08-13 13:41 | Outpatient (CLI) | payer OTHER ==
--- NOTE | 2019-08-13 14:56 | MRI ---
MRI CERVICAL SPINE WITHOUT CONTRAST: DATE: 08/13/2019. COMPARISON: . HISTORY: Neck pain and radiculopathy. TECHNIQUE: Multiplanar multisequence MR imaging of the cervical spine obtained without contrast. FINDINGS: Sagittal STIR imaging demonstrates edematous degenerative endplate change at C4-5 and C6-7. C2-3: There is mild left-sided facet hypertrophy. No central canal or neural foraminal stenosis. C3-4: There is disc space narrowing, disc desiccation, and a small central disc protrusion with parti al effacement of the ventral thecal sac. No significant central canal or right neural foraminal stenosis. Mild left neural foraminal stenosis on the basis of facet and uncovertebral osteophyte form ation. C4-5: There is disc space narrowing with disc desiccation, disc bulge, and a central disc protrusion effacing the ventral thecal sac and abutting the ventral aspect of the cord with mild associated central canal stenosis. No significant neural foraminal stenosis. C5-6: There is disc desiccation, mild disc bulge, and mild disc space narrowing. Partial effacement o f the ventral thecal sac with no associated central canal or neural foraminal stenosis. C6-7: There is disc space narrowing, disc desiccation, and disc bulge present with partial effacement of the ventral thecal sac and mild central canal stenosis. No significant right neural foraminal stenosis. Mild left neural foraminal stenosis noted on the basis of facet and uncovertebral osteophyt e formation. C7-T1: No significant central canal or neural foraminal stenosis. No focal area of abnormal signal intensity is identified within the cervical cord. IMPRESSION: Cervical spine degenerative change as described above. Transcribed Date/Time: 08/13/2019 3:22 PM
--- NOTE | 2019-08-13 15:07 | RAD ---
CERVICAL SPINE: 4 views INDICATIONS:Cervical pain COMPARISON:None FINDINGS: Cervical vertebra maintain normal height and alignment Disc spaces are normally maintained. Posterior elements are normally aligned. Mild degenerative osteophytes from the cervical vertebra and mild facet hypertrophy. Alignment appear s preserved with flexion and extension. No soft tissue abnormality identified. IMPRESSION: Dwpr-wn-bkaeoecy degenerative change
== END 2019-08-13 13:42 | disposition home or self-care (01) ==
LOC: BICMRI 13:41
PROVIDERS: ATTEND Nurse Practitioner Family
DX: M47.22 Other spondylosis with radiculopathy, cervical region (principal)
CPT/HCPCS: 72050; 72141

== ENCOUNTER 2020-03-26 13:50 | Outpatient (CLI) | payer OTHER ==
[~2020-03-26 13:50] MED LIST changes: -Bupivacaine HCl 0.5%/Epinephrine 1:200,000/PF 30 ml Vial ONE; -CEFAZOLIN/Water 2 GM/20 ML SYRINGE ONE; -Dexamethasone 20 MG/5 ML VIAL ONE; -Fentanyl 100 MCG/2 ML VIAL ONE; -HYDROmorphone 0.5 MG/0.5 ML SYRINGE ONE; -Lidocaine 1% PF 5 ML VIAL ONE; +Magnevist 469MG/ML 20 ML VIAL ONE; -Midazolam HCl 2 mg/2 ml Vial ONE; -Neomycin-Polymyxin 1 ML AMP ONE; -Ondansetron HCl/PF 4 MG/2 ML Vial ONE; -PROPOFOL 200 MG/20 ML VIAL ONE
[2020-03-26 14:36] LABS: Estimated GFR-MDRD - POC Greater than 90
--- NOTE | 2020-03-26 16:02 | MRI ---
MRI cervical spine with and without contrast: 03/26/2020 HISTORY: 50-year-old female with provided history of "M 50.90 cervical neck pain with evidence of disc disease " FINDINGS: There is no abnormal signal, abnormal enhancement, or mass, involving the intramedullary, extramedull shanna-intradural, or extradural, spaces. There is heterogeneous bone marrow signal, including diffusely hypointense signal on T1 WI, which is nonspecific, but may represent red marrow conversion (aggressive marrow infiltrative processes are not entirely excluded). Fatty marrow signal at the endplates of C4-5 and C5-6 probably represent [place] type II changes, or alternatively, could represen t areas of relative preservation of fatty marrow. Vertebral body heights are maintained. No major subluxation. Loss of lordosis could represent muscle spasm. Degenerative facet changes bilaterally ar e mostly mild. They are mild to moderate on the right and moderate on the left at C7-T1. Mild disc space narrowing at C4-5, and to a lesser degree C5-6 and C6-7. C1-2: No central stenosis. C2-3: No central or neural foraminal stenosis. C3-4: Small focal central disc disc protrusion, contiguous with thickened posterior longitudinal liga ment, abuts the ventral surface of spinal cord. Mild central spinal canal stenosis at this level. Small bilateral uncinate process osteophytes. No high-grade right neural foraminal stenosis. Mild-mod erate left neural foraminal stenosis. C4: Thickened posterior longitudinal ligament indents the ventral surface of spinal cord. C4-5: Central and bilateral paracentral small protrusion, inseparable from the thickened posterior lo ngitudinal ligament, indents the ventral surface of the spinal cord, centered minimally to the right of midline, causing moderate central spinal canal stenosis. Small bilateral uncinate process os teophytes. Moderate right and mild to moderate left neural foraminal stenosis. C5-6: Central and bilateral paracentral disc protrusion abuts and mildly indents the ventral surface of spinal cord. Moderate-severe central spinal canal stenosis. Small bilateral uncinate process osteophytes. Moderate bilateral neural foraminal stenosis. C6-7: Shallow central and bilateral paracentral disc protrusion and minimal retrolisthesis of C6 on C 7 abut the ventral surface of spinal cord. Moderate central spinal canal stenosis. Small to moderate-sized bilateral uncinate process osteophytes. No significant right neural foraminal stenosis . Severe left neural foraminal stenosis. C7-T1: No central or neural foraminal stenosis. No major interval change compared to the noncontrast MRI of 08/13/2019. IMPRESSION: 1. Cervical spondylosis with several levels of central spinal canal stenosis and neural foraminal jazmin nosis as described above. 2. The worst neural foraminal stenosis is on the left at C6-7.
== END 2020-03-26 13:51 | disposition home or self-care (01) ==
LOC: BICMRI 13:50
PROVIDERS: ATTEND Family Medicine
DX: M50.90 Cervical disc disorder, unspecified, unspecified cervical region (principal); M47.812 Spondylosis without myelopathy or radiculopathy, cervical region; M48.02 Spinal stenosis, cervical region
CPT/HCPCS: 72156; 82565; A9579

== ENCOUNTER 2020-04-24 05:50 | Outpatient (CLI) | payer OTHER ==
[2020-04-24 11:00] LABS: Hemoglobin 14.1 g/dL (12.0-16.0); Mean Corpuscular Hemoglobin 26.9 pg (27.0-31.0); Mean Corpuscular Volume 84.1 fL (78.0-98.0); Mean Platelet Volume 9.5 fL (7.4-10.4); Platelet Count 200 thou/uL (130-400); RBC Distribution Width 13.2 % (11.5-14.5); Red Blood Cell (RBC) Count 5.23 mill/uL (4.20-5.40); White Blood Cell (WBC) Count 6.8 thou/uL (4.8-10.8)
[2020-04-24 11:24] LABS: INR-International Normal Ratio 0.9; PTT 29.1 sec (22.9-36.1); Prothrombin Time 12.4 sec (12.0-14.7)
[2020-04-24 12:04] LABS: Anion Gap 16 mmol/L (10-20); BUN (Urea Nitrogen) 14 mg/dL (7.0-18.7); Calc. Creatinine Clearance 0 mL/min (70-130); Calcium 9.3 mg/dL (7.8-10.44); Carbon Dioxide 23 mmol/L (22-29); Chloride 101 mmol/L (98-107); Estimated GFR-MDRD 84; Glucose 247 mg/dL (70-105); Sodium 136 mmol/L (136-145)
[2020-04-25 16:00] LABS: SARS-CoV-2 MS2 Positive; SARS-CoV-2 N Gene Negative; SARS-CoV-2 S Gene Negative; SARS-CoV-2 orf1ab Negative
--- NOTE | 2020-04-28 10:08 | EKG ---
Test Reason : PRE OP FRO 04/29 Blood Pressure : / mmHG Vent. Rate : 069 BPM Atrial Rate : 069 BPM P-R Int : 180 ms QRS Dur : 072 ms QT Int : 410 ms P-R-T Axes : 072 017 031 degrees QTc Int : 439 ms Normal sinus rhythm with sinus arrhythmia Possible Left atrial enlargement Borderline ECG When compared with ECG of 09-DEC-2017 13:53, No significant change was found Confirmed by ALYSON RAMIREZ (2) on 04/28/2020 10:07:31 AM Referred By: KATIUSKA Confirmed By:ALYSON RAMIREZ
== END 2020-04-24 05:51 | disposition home or self-care (01) ==
LOC: LABBT 05:50
PROVIDERS: ATTEND Surgery
DX: Z01.818 Encounter for other preprocedural examination (principal); Z11.59 Encounter for screening for other viral diseases; M48.02 Spinal stenosis, cervical region; M50.120 Mid-cervical disc disorder, unspecified level
CPT/HCPCS: 80048; 85027; 85610; 85730; 87635; 93005; 93010; U0003

== ENCOUNTER 2020-10-26 17:57 | Emergency (ER) | payer OTHER ==
[2020-10-26 19:26] LABS: Bilirubin Negative (Negative); Blood, Urine Negative (Negative); Clarity Clear (Clear); Glucose, Urine (Dipstick) Normal (Negative); Ketone, Urine Negative (Negative); Leukocyte Negative Leu/uL (Negative); Nitrite Negative (Negative); Protein, Urine (Dipstick) Negative (Neg-Trace); Specific Gravity, Urine 1.007 (1.002-1.036); Urobilinogen Normal mg/dL (Less than 2); pH, Urine 6.5 (5.0-9.0)
[2020-10-26 19:38] LABS: Hemoglobin 14.6 g/dL (12.0-16.0); Mean Corpuscular HGB CONC 32.3 g/dL (32.0-36.0); Mean Corpuscular Hemoglobin 27.2 pg (27.0-31.0); Mean Corpuscular Volume 84.3 fL (78.0-98.0); Mean Platelet Volume 9.3 fL (7.4-10.4); Platelet Count 201 thou/uL (130-400); RBC Distribution Width 13.4 % (11.5-14.5); Red Blood Cell (RBC) Count 5.38 mill/uL (4.20-5.40); White Blood Cell (WBC) Count 7.9 thou/uL (4.8-10.8)
[2020-10-26 19:47] LABS: ALT (SGPT) 17 U/L (8-55); AST (SGOT) 12 U/L (5-34); Albumin 4.5 g/dL (3.5-5.0); Alkaline Phosphatase 81 U/L (40-110); Anion Gap 14 mmol/L (10-20); BUN (Urea Nitrogen) 13 mg/dL (7.0-18.7); Bilirubin, Total 0.2 mg/dL (0.2-1.2); Calc. Creatinine Clearance 0 mL/min (70-130); Calcium 9.5 mg/dL (7.8-10.44); Carbon Dioxide 26 mmol/L (22-29); Chloride 102 mmol/L (98-107); Globulin 4.2 g/dL (2.4-3.5); Glucose 147 mg/dL (70-105); Potassium 4.3 mmol/L (3.5-5.1); Protein, Total 8.7 g/dL (6.0-8.3); Sodium 138 mmol/L (136-145)
[2020-10-26 20:19] LABS: Band 4 % (5-11); Lymphocytes 31 % (21-51); MDiff Complete? YES; Monocytes 3 % (0-10); Neutrophil 42 % (42-75); Platelet Morphology Comment Appears Adequate; Reactive Lymphocytes 20 % (0-10); Target Cells SLIGHT = 2-5 cells (100X) (0-1/hpf)
== END 2020-10-26 20:35 | disposition home or self-care (01) ==
LOC: ERS 17:57
DX: G89.29 Other chronic pain (principal); M54.40 Lumbago with sciatica, unspecified side; E78.5 Hyperlipidemia, unspecified; E78.00 Pure hypercholesterolemia, unspecified; E11.9 Type 2 diabetes mellitus without complications; M06.9 Rheumatoid arthritis, unspecified; J44.9 Chronic obstructive pulmonary disease, unspecified; F17.210 Nicotine dependence, cigarettes, uncomplicated
CPT/HCPCS: 36415; 80053; 81003; 85025; 99284

== ENCOUNTER 2020-11-10 13:58 | Outpatient (CLI) | payer OTHER ==
--- NOTE | 2020-11-10 14:41 | ULT ---
Renal ultrasound: 11/10/2020 COMPARISON: None HISTORY: Chronic kidney disease TECHNIQUE: Multiplanar grayscale sonographic imaging of the kidneys and the urinary bladder obtained. FINDINGS: The right kidney measures 11.5 x 3.6 x 4.4 cm with a cortical thickness of approximately 9 mm. No right renal mass, hydronephrosis, or stone noted. Urinary bladder appears unremarkable. The left kidney measures 10.9 x 6.0 x 6.4 cm with a cortical thickness of approximately 1.5 cm. No le ft renal mass, hydronephrosis, or stone noted. IMPRESSION: Unremarkable renal ultrasound.
== END 2020-11-10 13:59 | disposition home or self-care (01) ==
LOC: BICULT 13:58
PROVIDERS: ATTEND Internal Medicine Nephrology
DX: N18.2 Chronic kidney disease, stage 2 (mild) (principal); N20.0 Calculus of kidney
CPT/HCPCS: 76770

== ENCOUNTER 2021-02-11 22:54 | Emergency (ER) | payer OTHER ==
[2021-02-11 23:52] LABS: Bilirubin Negative (Negative); Blood, Urine Negative (Negative); Clarity Clear (Clear); Glucose, Urine (Dipstick) 300 mg/dL (Negative); Ketone, Urine Negative (Negative); Leukocyte Negative Leu/uL (Negative); Nitrite Negative (Negative); Protein, Urine (Dipstick) 10 mg/dL (Neg-Trace); Specific Gravity, Urine 1.025 (1.002-1.036); Urobilinogen Normal mg/dL (Less than 2)
[2021-02-11 23:53] LABS: Pregnancy Test - Urine (BHCG) Negative (Negative); Pregu Control Background? CLEAR/WHITE (CLR/WHITE); Pregu Control Bar Appear? YES (CONTROL BAR); Specific Gravity 1.025 (1.002-1.036)
[2021-02-12 00:58] LABS: ALT (SGPT) 17 U/L (8-55); AST (SGOT) 12 U/L (5-34); Albumin 4.3 g/dL (3.5-5.0); Alkaline Phosphatase 78 U/L (40-110); Anion Gap 14 mmol/L (10-20); BUN (Urea Nitrogen) 18 mg/dL (7.0-18.7); Bilirubin, Total 0.3 mg/dL (0.2-1.2); Calc. Creatinine Clearance 0 mL/min (70-130); Calcium 9.6 mg/dL (7.8-10.44); Carbon Dioxide 26 mmol/L (22-29); Chloride 102 mmol/L (98-107); Globulin 3.4 g/dL (2.4-3.5); Glucose 231 mg/dL (70-105); Lipase 49 U/L (8-78); Potassium 3.8 mmol/L (3.5-5.1); Protein, Total 7.7 g/dL (6.0-8.3); Sodium 138 mmol/L (136-145)
[2021-02-12 01:12] LABS: Band 2 % (5-11); Hemoglobin 13.3 g/dL (12.0-16.0); Lymphocytes 49 % (21-51); MDiff Complete? YES; Mean Corpuscular HGB CONC 33.1 g/dL (32.0-36.0); Mean Corpuscular Hemoglobin 27.7 pg (27.0-31.0); Mean Corpuscular Volume 83.8 fL (78.0-98.0); Mean Platelet Volume 9.3 fL (7.4-10.4); Monocytes 6 % (0-10); Neutrophil 40 % (42-75); Platelet Count 178 thou/uL (130-400); Platelet Morphology Comment Appears Adequate; RBC Morphology Normal; Reactive Lymphocytes 3 % (0-10); Red Blood Cell (RBC) Count 4.79 mill/uL (4.20-5.40); White Blood Cell (WBC) Count 8.7 thou/uL (4.8-10.8)
[2021-02-12] MEDS ORDERED: Ketorolac Tromethamine 30 MG/ML VIAL ONE (01:17)
== END 2021-02-12 01:42 | disposition home or self-care (01) ==
LOC: ERS 22:54
DX: T14.8XXA Other injury of unspecified body region, initial encounter (principal); R10.9 Unspecified abdominal pain; E78.5 Hyperlipidemia, unspecified; E78.00 Pure hypercholesterolemia, unspecified; M06.9 Rheumatoid arthritis, unspecified; E11.40 Type 2 diabetes mellitus with diabetic neuropathy, unspecified; J44.9 Chronic obstructive pulmonary disease, unspecified; K21.9 Gastro-esophageal reflux disease without esophagitis; F17.210 Nicotine dependence, cigarettes, uncomplicated
CPT/HCPCS: 36415; 71045; 80053; 81003; 81025; 83690; 84484; 85025; 93005; 96372; J1885

== ENCOUNTER 2021-02-25 18:12 | Emergency (ER) | payer OTHER ==
[~2021-02-25 18:12] MED LIST changes: +Iopamidol 370 76% 100 ML VIAL ONE; -Magnevist 469MG/ML 20 ML VIAL ONE
[2021-02-25] MEDS ORDERED: Ketorolac Tromethamine 30 MG/ML VIAL ONE (18:45)
[2021-02-25 19:25] LABS: Hemoglobin 12.7 g/dL (12.0-16.0); Mean Corpuscular HGB CONC 32.6 g/dL (32.0-36.0); Mean Corpuscular Hemoglobin 27.4 pg (27.0-31.0); Mean Corpuscular Volume 84.1 fL (78.0-98.0); Mean Platelet Volume 9.5 fL (7.4-10.4); Platelet Count 200 thou/uL (130-400); RBC Distribution Width 13.2 % (11.5-14.5); Red Blood Cell (RBC) Count 4.62 mill/uL (4.20-5.40); White Blood Cell (WBC) Count 8.7 thou/uL (4.8-10.8)
[2021-02-25 19:44] LABS: Bacteria/HPF None Seen HPF (None Seen); Bilirubin Negative (Negative); Blood, Urine Negative (Negative); Clarity Clear (Clear); Glucose, Urine (Dipstick) 100 mg/dL (Negative); Ketone, Urine Negative (Negative); Leukocyte 75 Leu/uL (Negative); Nitrite Negative (Negative); Protein, Urine (Dipstick) Negative (Neg-Trace); RBC/HPF 0-3 HPF (0-3); Specific Gravity, Urine 1.022 (1.002-1.036); Squamous Epithelial 0-3 HPF (0-3); Urobilinogen Normal mg/dL (Less than 2); WBC/HPF 0-3 HPF (0-3); pH, Urine 6.5 (5.0-9.0)
[2021-02-25 19:54] LABS: Eosinophils 1 % (0-10); Lymphocytes 60 % (21-51); MDiff Complete? YES; Metamyelocyte 1 % (0-0); Neutrophil 37 % (42-75); Platelet Morphology Comment Appears Adequate; Reactive Lymphocytes 1 % (0-10)
[2021-02-25 19:59] LABS: ALT (SGPT) 13 U/L (8-55); AST (SGOT) 13 U/L (5-34); Albumin 3.9 g/dL (3.5-5.0); Alkaline Phosphatase 80 U/L (40-110); Anion Gap 15 mmol/L (10-20); BUN (Urea Nitrogen) 20 mg/dL (7.0-18.7); Bilirubin, Total 0.2 mg/dL (0.2-1.2); Calc. Creatinine Clearance 0 mL/min (70-130); Calcium 9.4 mg/dL (7.8-10.44); Carbon Dioxide 23 mmol/L (22-29); Chloride 104 mmol/L (98-107); Globulin 3.6 g/dL (2.4-3.5); Glucose 219 mg/dL (70-105); Lipase 20 U/L (8-78); Protein, Total 7.5 g/dL (6.0-8.3); Sodium 138 mmol/L (136-145)
== END 2021-02-25 20:18 | disposition home or self-care (01) ==
LOC: ERS 18:12
DX: N10 Acute pyelonephritis (principal); E78.5 Hyperlipidemia, unspecified; E78.00 Pure hypercholesterolemia, unspecified; E11.9 Type 2 diabetes mellitus without complications; M06.9 Rheumatoid arthritis, unspecified; K21.9 Gastro-esophageal reflux disease without esophagitis; F17.210 Nicotine dependence, cigarettes, uncomplicated
CPT/HCPCS: 36415; 74177; 80053; 81003; 81015; 83690; 84484; 85025; 93005; 96374; J1885; Q9967

== ENCOUNTER 2021-03-03 16:37 | Emergency (ER) | payer OTHER ==
[2021-03-03 18:20] LABS: #Basophils 0.1 thou/uL (0.0-0.2); #Eosinphils 0.1 thou/uL (0.0-0.7); #Lymphocytes 3.3 thou/uL (1.20-3.40); #Monocytes 0.3 thou/uL (0.11-0.59); #Neutrophils 3.9 thou/uL (1.40-6.50); %Basophils 0.9 % (0.0-1.0); %Lymphocytes 42.6 % (21.0-51.0); %Monocytes 4.2 % (0.0-10.0); %Neutrophils 51.3 % (42.0-75.0); Hemoglobin 13.3 g/dL (12.0-16.0); Mean Corpuscular HGB CONC 32.3 g/dL (32.0-36.0); Mean Corpuscular Hemoglobin 27.4 pg (27.0-31.0); Mean Corpuscular Volume 84.8 fL (78.0-98.0); Mean Platelet Volume 9.2 fL (7.4-10.4); Platelet Count 200 thou/uL (130-400); RBC Distribution Width 13.1 % (11.5-14.5); Red Blood Cell (RBC) Count 4.87 mill/uL (4.20-5.40); White Blood Cell (WBC) Count 7.6 thou/uL (4.8-10.8)
[2021-03-03 18:47] LABS: ALT (SGPT) 13 U/L (8-55); AST (SGOT) 15 U/L (5-34); Albumin 4.1 g/dL (3.5-5.0); Alkaline Phosphatase 71 U/L (40-110); Anion Gap 13 mmol/L (10-20); BUN (Urea Nitrogen) 13 mg/dL (7.0-18.7); Bilirubin, Total 0.2 mg/dL (0.2-1.2); Calc. Creatinine Clearance 0 mL/min (70-130); Calcium 9.6 mg/dL (7.8-10.44); Carbon Dioxide 26 mmol/L (22-29); Chloride 103 mmol/L (98-107); Globulin 3.6 g/dL (2.4-3.5); Glucose 209 mg/dL (70-105); Potassium 4.2 mmol/L (3.5-5.1); Protein, Total 7.7 g/dL (6.0-8.3); Sodium 138 mmol/L (136-145)
[2021-03-03 18:55] LABS: Bilirubin Negative (Negative); Blood, Urine Negative (Negative); Clarity Clear (Clear); Glucose, Urine (Dipstick) 500 mg/dL (Negative); Ketone, Urine Negative (Negative); Leukocyte Negative Leu/uL (Negative); Nitrite Negative (Negative); Protein, Urine (Dipstick) Negative (Neg-Trace); Specific Gravity, Urine 1.019 (1.002-1.036); Urobilinogen Normal mg/dL (Less than 2); pH, Urine 6.5 (5.0-9.0)
== END 2021-03-03 19:33 | disposition home or self-care (01) ==
LOC: ERS 16:37
DX: R10.9 Unspecified abdominal pain (principal); E11.40 Type 2 diabetes mellitus with diabetic neuropathy, unspecified; E78.5 Hyperlipidemia, unspecified; E78.00 Pure hypercholesterolemia, unspecified; M79.7 Fibromyalgia; M06.9 Rheumatoid arthritis, unspecified; J44.9 Chronic obstructive pulmonary disease, unspecified; K21.9 Gastro-esophageal reflux disease without esophagitis; F17.210 Nicotine dependence, cigarettes, uncomplicated
CPT/HCPCS: 36415; 80053; 81003; 83690; 85025; 99281

== ENCOUNTER 2021-08-05 13:54 | Outpatient (CLI) | payer OTHER | END 2021-08-05 13:55 | disposition home or self-care (01) | LOC: BICMAMMO 13:54 | PROVIDERS: ATTEND Family Medicine | DX: Z12.31 Encounter for screening mammogram for malignant neoplasm of breast (principal); Z80.8 Family history of malignant neoplasm of other organs or systems | CPT/HCPCS: 77063; 77067 ==

== ENCOUNTER 2021-08-31 14:53 | Emergency (ER) | payer OTHER ==
[2021-08-31 15:48] LABS: Bacteria/HPF 4+ HPF (None Seen); Bilirubin Negative (Negative); Blood, Urine Negative (Negative); Clarity Turbid (Clear); Glucose, Urine (Dipstick) 500 mg/dL (Negative); Ketone, Urine Trace mg/dL (Negative); Leukocyte 75 Leu/uL (Negative); Nitrite 2+ (Negative); Protein, Urine (Dipstick) 20 mg/dL (Neg-Trace); RBC/HPF 0-3 HPF (0-3); Specific Gravity, Urine 1.025 (1.002-1.036); Squamous Epithelial 0-3 HPF (0-3); Urobilinogen Normal mg/dL (Less than 2); WBC/HPF 21-50 HPF (0-3); pH, Urine 5.5 (5.0-9.0)
[2021-08-31 16:45] LABS: Pregnancy Test - Urine (BHCG) Negative (Negative); Pregu Control Background? CLEAR/WHITE (CLR/WHITE); Pregu Control Bar Appear? YES (CONTROL BAR); Specific Gravity 1.025 (1.002-1.036)
[2021-09-02 16:22] LABS: Chlam.trachomatis by PCR,Urine Not Detected (NotDetected)
== END 2021-08-31 16:32 | disposition home or self-care (01) ==
LOC: ERS 14:53
DX: N30.01 Acute cystitis with hematuria (principal); B37.3 Candidiasis of vulva and vagina; E78.5 Hyperlipidemia, unspecified; E78.00 Pure hypercholesterolemia, unspecified; E11.40 Type 2 diabetes mellitus with diabetic neuropathy, unspecified; J44.9 Chronic obstructive pulmonary disease, unspecified; G43.909 Migraine, unspecified, not intractable, without status migrainosus; K21.9 Gastro-esophageal reflux disease without esophagitis; F17.210 Nicotine dependence, cigarettes, uncomplicated; Z79.899 Other long term (current) drug therapy
CPT/HCPCS: 81003; 81015; 81025; 87077; 87086; 87186; 87491; 87591; 99283

== ENCOUNTER 2021-10-25 00:31 | Emergency (ER) | payer OTHER ==
[2021-10-25 03:27] LABS: Hemoglobin 13.1 g/dL (12.0-16.0); Mean Corpuscular HGB CONC 33.5 g/dL (32.0-36.0); Mean Corpuscular Hemoglobin 28.5 pg (27.0-31.0); Mean Corpuscular Volume 85.1 fL (78.0-98.0); Platelet Count 176 thou/uL (130-400); RBC Distribution Width 12.7 % (11.5-14.5); Red Blood Cell (RBC) Count 4.61 mill/uL (4.20-5.40); White Blood Cell (WBC) Count 8.5 thou/uL (4.8-10.8)
[2021-10-25 03:27] LABS: Bacteria/HPF None Seen HPF (None Seen); Bilirubin Negative (Negative); Blood, Urine Negative (Negative); Clarity Clear (Clear); Glucose, Urine (Dipstick) Normal (Negative); Ketone, Urine Negative (Negative); Leukocyte Negative Leu/uL (Negative); Nitrite 1+ (Negative); Protein, Urine (Dipstick) 10 mg/dL (Neg-Trace); RBC/HPF 0-3 HPF (0-3); Specific Gravity, Urine 1.026 (1.002-1.036); Squamous Epithelial None Seen HPF (0-3)
[2021-10-25 03:45] LABS: ALT (SGPT) 19 U/L (8-55); AST (SGOT) 13 U/L (5-34); Albumin 4.2 g/dL (3.5-5.0); Alkaline Phosphatase 67 U/L (40-110); Anion Gap 10 mmol/L (10-20); BUN (Urea Nitrogen) 20 mg/dL (7.0-18.7); Bilirubin, Total 0.2 mg/dL (0.2-1.2); Calc. Creatinine Clearance 0 mL/min (70-130); Calcium 10.1 mg/dL (7.8-10.44); Carbon Dioxide 27 mmol/L (22-29); Chloride 106 mmol/L (98-107); Globulin 3.7 g/dL (2.4-3.5); Glucose 166 mg/dL (70-105); Magnesium 1.9 mg/dL (1.6-2.6); Potassium 4.3 mmol/L (3.5-5.1); Protein, Total 7.9 g/dL (6.0-8.3); Sodium 139 mmol/L (136-145)
[2021-10-25 04:03] LABS: Eosinophils 3 % (0-10); Lymphocytes 59 % (21-51); MDiff Complete? YES; Monocytes 6 % (0-10); Neutrophil 31 % (42-75); Reactive Lymphocytes 1 % (0-10)
== END 2021-10-25 04:40 | disposition home or self-care (01) ==
LOC: ERS 00:31
DX: E11.40 Type 2 diabetes mellitus with diabetic neuropathy, unspecified (principal); E78.5 Hyperlipidemia, unspecified; E78.00 Pure hypercholesterolemia, unspecified; M06.9 Rheumatoid arthritis, unspecified; G43.909 Migraine, unspecified, not intractable, without status migrainosus; J44.9 Chronic obstructive pulmonary disease, unspecified; K21.9 Gastro-esophageal reflux disease without esophagitis; F17.210 Nicotine dependence, cigarettes, uncomplicated; Z79.84 Long term (current) use of oral hypoglycemic drugs; Z79.899 Other long term (current) drug therapy
CPT/HCPCS: 36415; 80053; 81003; 81015; 83735; 85025; 99284

== ENCOUNTER 2022-04-27 17:06 | Emergency (ER) | payer OTHER ==
[2022-04-27 18:14] LABS: #Basophils 0.1 thou/uL (0.0-0.2); #Eosinphils 0.1 thou/uL (0.0-0.7); #Lymphocytes 3.9 thou/uL (1.20-3.40); #Monocytes 0.3 thou/uL (0.11-0.59); #Neutrophils 3.6 thou/uL (1.40-6.50); %Eosinophils 1.7 % (0.0-10.0); %Lymphocytes 48.8 % (21.0-51.0); %Neutrophils 44.5 % (42.0-75.0); Hemoglobin 13.6 g/dL (12.0-16.0); Mean Corpuscular HGB CONC 31.1 g/dL (32.0-36.0); Mean Corpuscular Hemoglobin 27.1 pg (27.0-31.0); Mean Corpuscular Volume 87.2 fL (78.0-98.0); Mean Platelet Volume 8.8 fL (7.4-10.4); Platelet Count 217 thou/uL (130-400); RBC Distribution Width 13.3 % (11.5-14.5); Red Blood Cell (RBC) Count 5.03 mill/uL (4.20-5.40)
[2022-04-27 18:34] LABS: ALT (SGPT) 14 U/L (8-55); AST (SGOT) 12 U/L (5-34); Albumin 4.3 g/dL (3.5-5.0); Alkaline Phosphatase 69 U/L (40-110); Anion Gap 10 mmol/L (10-20); BUN (Urea Nitrogen) 14 mg/dL (7.0-18.7); Bilirubin, Total 0.2 mg/dL (0.2-1.2); Calc. Creatinine Clearance 0 mL/min (70-130); Calcium 9.8 mg/dL (7.8-10.44); Carbon Dioxide 32 mmol/L (22-29); Chloride 102 mmol/L (98-107); Estimated GFR 95; Globulin 3.4 g/dL (2.4-3.5); Glucose 147 mg/dL (70-105); Potassium 4.5 mmol/L (3.5-5.1); Protein, Total 7.7 g/dL (6.0-8.3); Sodium 139 mmol/L (136-145)
[2022-04-27] MEDS ORDERED: Lorazepam 1 MG TAB ONE (18:43)
[2022-04-27 19:12] LABS: Bilirubin Negative (Negative); Blood, Urine Negative (Negative); Clarity Clear (Clear); Glucose, Urine (Dipstick) Normal (Negative); Ketone, Urine Negative (Negative); Leukocyte Negative Leu/uL (Negative); Nitrite Negative (Negative); Protein, Urine (Dipstick) Negative (Neg-Trace); Specific Gravity, Urine 1.013 (1.002-1.036); Urobilinogen Normal mg/dL (Less than 2)
== END 2022-04-27 20:00 | disposition home or self-care (01) ==
LOC: ERS 17:06
DX: R42 Dizziness and giddiness (principal); R30.0 Dysuria; E78.5 Hyperlipidemia, unspecified; E78.00 Pure hypercholesterolemia, unspecified; E11.40 Type 2 diabetes mellitus with diabetic neuropathy, unspecified; J44.9 Chronic obstructive pulmonary disease, unspecified; K21.9 Gastro-esophageal reflux disease without esophagitis; M79.7 Fibromyalgia; M06.9 Rheumatoid arthritis, unspecified; F17.210 Nicotine dependence, cigarettes, uncomplicated; Z79.84 Long term (current) use of oral hypoglycemic drugs; Z79.899 Other long term (current) drug therapy
CPT/HCPCS: 36415; 71045; 80053; 81003; 83880; 84484; 85025; 93005; 96360

== ENCOUNTER 2022-09-23 15:15 | Outpatient (CLI) | payer OTHER | END 2022-09-23 15:16 | disposition home or self-care (01) | LOC: BICMAMMO 15:15 | PROVIDERS: ATTEND Student in an Organized Health Care Education/Training Program | DX: Z12.31 Encounter for screening mammogram for malignant neoplasm of breast (principal); N64.89 Other specified disorders of breast; Z85.42 Personal history of malignant neoplasm of other parts of uterus | CPT/HCPCS: 77067 ==

== ENCOUNTER 2022-10-04 10:20 | Outpatient (CLI) | payer OTHER | END 2022-10-04 10:21 | disposition home or self-care (01) | LOC: BICMAMMO 10:20 | PROVIDERS: ATTEND Student in an Organized Health Care Education/Training Program | DX: N64.89 Other specified disorders of breast (principal) | CPT/HCPCS: 77066; G0279 ==

== ENCOUNTER 2023-03-01 11:29 | Emergency (ER) | payer OTHER ==
[2023-03-01 11:56] LABS: #Eosinphils 0.1 thou/uL (0.0-0.7); #Monocytes 0.4 thou/uL (0.11-0.59); #Neutrophils 3.2 thou/uL (1.40-6.50); %Basophils 0.6 % (0.0-1.0); %Eosinophils 1.9 % (0.0-10.0); %Lymphocytes 45.5 % (21.0-51.0); %Neutrophils 45.7 % (42.0-75.0); Hemoglobin 12.9 g/dL (12.0-16.0); Mean Corpuscular HGB CONC 29.7 g/dL (32.0-36.0); Mean Corpuscular Hemoglobin 25.4 pg (27.0-31.0); Mean Corpuscular Volume 85.6 fl (78.0-98.0); Platelet Count 223 10x3/uL (130-400); RBC Distribution Width 14.3 % (11.5-14.5); Red Blood Cell (RBC) Count 5.07 mill/uL (4.20-5.40)
[2023-03-01 12:18] LABS: ALT (SGPT) 14 U/L (8-55); AST (SGOT) 13 U/L (5-34); Albumin 4.2 g/dL (3.5-5.0); Alkaline Phosphatase 75 U/L (40-110); Anion Gap 16 mmol/L (10-20); BUN (Urea Nitrogen) 13 mg/dL (9.8-20.1); Bilirubin, Total 0.2 mg/dL (0.2-1.2); Calc. Creatinine Clearance 0 mL/min (70-130); Calcium 9.1 mg/dL (7.8-10.44); Carbon Dioxide 22 mmol/L (22-29); Chloride 105 mmol/L (98-107); Estimated GFR 88; Globulin 3.5 g/dL (2.4-3.5); Glucose 246 mg/dL (70-105); Potassium 4.9 mmol/L (3.5-5.1); Protein, Total 7.7 g/dL (6.0-8.3); Sodium 138 mmol/L (136-145)
[2023-03-01 12:37] LABS: Platelet Morphology Comment Platelets Normal; RBC Morphology Within Normal Limits
== END 2023-03-01 13:15 | disposition home or self-care (01) ==
LOC: ERS 11:29
DX: R06.02 Shortness of breath (principal); I10 Essential (primary) hypertension; R05.9 Cough, unspecified; E78.00 Pure hypercholesterolemia, unspecified; E11.40 Type 2 diabetes mellitus with diabetic neuropathy, unspecified; K21.9 Gastro-esophageal reflux disease without esophagitis; J44.9 Chronic obstructive pulmonary disease, unspecified; F17.210 Nicotine dependence, cigarettes, uncomplicated; Z79.84 Long term (current) use of oral hypoglycemic drugs; Z79.899 Other long term (current) drug therapy
CPT/HCPCS: 36415; 71045; 80053; 83880; 84484; 85025; 93005

== ENCOUNTER 2023-04-27 12:17 | Outpatient (CLI) | payer OTHER | END 2023-04-27 12:18 | disposition home or self-care (01) | LOC: RAD 12:17 | PROVIDERS: ATTEND Internal Medicine Critical Care Medicine | DX: R06.00 Dyspnea, unspecified (principal) | CPT/HCPCS: 71046 ==

== ENCOUNTER 2023-07-08 14:33 | Outpatient (CLI) | payer OTHER | END 2023-07-08 14:34 | disposition home or self-care (01) | LOC: BICRAD 14:33 | PROVIDERS: ATTEND Nurse Practitioner Family | DX: M94.0 Chondrocostal junction syndrome [Tietze] (principal) ==

== ENCOUNTER 2023-08-11 06:58 | Outpatient (CLI) | payer OTHER | END 2023-08-11 06:59 | disposition home or self-care (01) | LOC: BICULT 06:58 | PROVIDERS: ATTEND Emergency Medicine | DX: R14.0 Abdominal distension (gaseous) (principal); Z90.710 Acquired absence of both cervix and uterus; Z90.721 Acquired absence of ovaries, unilateral | CPT/HCPCS: 76856 ==

== ENCOUNTER 2023-08-25 12:55 | Outpatient (CLI) | payer OTHER | END 2023-08-25 12:56 | disposition home or self-care (01) | LOC: BICMRI 12:55 | PROVIDERS: ATTEND Surgery | DX: M47.12 Other spondylosis with myelopathy, cervical region (principal) | CPT/HCPCS: 72125; 72141 ==

== ENCOUNTER 2023-09-02 08:27 | Outpatient (CLI) | payer OTHER ==
[2023-09-02] MEDS ORDERED: Iopamidol 370 76% 100 ML VIAL ONE (12:56)
== END 2023-09-02 08:28 | disposition home or self-care (01) ==
LOC: BICCT 08:27
PROVIDERS: ATTEND Physician Assistant Medical
DX: R10.9 Unspecified abdominal pain (principal)
CPT/HCPCS: 74177; 82565; Q9967

== ENCOUNTER 2023-11-17 13:17 | Outpatient (CLI) | payer OTHER ==
[2023-11-17 14:12] LABS: Hematocrit 41.8 % (34.9-44.5); Hemoglobin 13.3 g/dL (12.0-15.5); Mean Corpuscular HGB CONC 31.8 g/dL (32.0-36.0); Mean Corpuscular Hemoglobin 26.7 pg (27.0-33.0); Mean Corpuscular Volume 83.8 fl (81.6-98.3); Mean Platelet Volume 11.5 fl (7.4-10.4); Platelet Count 233 10x3/uL (150-450); RBC Distribution Width 14.6 % (11.5-14.5); Red Blood Cell (RBC) Count 4.99 10x6/uL (3.90-5.03); White Blood Cell (WBC) Count 7.8 10x3/uL (3.5-10.5)
[2023-11-17 14:28] LABS: Anion Gap 12 mmol/L (10-20); BUN (Urea Nitrogen) 13 mg/dL (9.8-20.1); Calc. Creatinine Clearance 0 mL/min (70-130); Calcium 9.2 mg/dL (7.8-10.44); Carbon Dioxide 26 mmol/L (22-29); Chloride 105 mmol/L (98-107); Estimated GFR 89; Glucose 252 mg/dL (70-105); INR-International Normal Ratio 0.9; PTT 27.9 sec (22.0-33.0); Potassium 3.9 mmol/L (3.5-5.1); Prothrombin Time 10.1 sec (9.5-12.1); Sodium 139 mmol/L (136-145)
== END 2023-11-17 13:18 | disposition home or self-care (01) ==
LOC: LABBT 13:17
PROVIDERS: ATTEND Surgery
DX: Z01.818 Encounter for other preprocedural examination (principal)
CPT/HCPCS: 80048; 85027; 85610; 85730; 93005; 93010

== ENCOUNTER 2023-11-20 07:16 | Emergency (ER) | payer OTHER ==
[2023-11-20] MEDS ORDERED: Dexamethasone 10 MG/ML VIAL ONE (08:00)
[2023-11-20] MEDS ORDERED: Oxymetazoline HCl 0.05% (30 ML BOT) ONE (08:03)
[2023-11-20 08:23] LABS: SARS-CoV-2 NAA Rapid Test Not Detected (NotDetected)
[2023-11-20 09:00] LABS: #Monocytes 0.8 thou/uL (0.11-0.59); #Neutrophils 8.6 thou/uL (1.40-6.50); %Basophils 0.3 % (0.0-1.0); %Eosinophils 0.3 % (0.0-10.0); %Lymphocytes 19.1 % (21.0-51.0); %Monocytes 6.6 % (0.0-10.0); %Neutrophils 73.3 % (42.0-75.0); Hematocrit 41.5 % (36.0-47.0); Hemoglobin 13.1 g/dL (12.0-16.0); Mean Corpuscular HGB CONC 31.6 g/dL (32.0-36.0); Mean Corpuscular Hemoglobin 26.4 pg (27.0-31.0); Mean Corpuscular Volume 83.7 fl (78.0-98.0); Mean Platelet Volume 10.7 fL (7.4-10.4); Platelet Count 217 10x3/uL (130-400); RBC Distribution Width 14.6 % (11.5-14.5); Red Blood Cell (RBC) Count 4.96 mill/uL (4.20-5.40); White Blood Cell (WBC) Count 11.8 10x3/uL (4.8-10.8)
[2023-11-20 09:24] LABS: ALT (SGPT) 17 U/L (8-55); AST (SGOT) 15 U/L (5-34); Albumin 4.1 g/dL (3.5-5.0); Alkaline Phosphatase 75 U/L (40-110); Anion Gap 16 mmol/L (10-20); BUN (Urea Nitrogen) 12 mg/dL (9.8-20.1); Bilirubin, Total 0.4 mg/dL (0.2-1.2); Calc. Creatinine Clearance 0 mL/min (70-130); Calcium 8.9 mg/dL (7.8-10.44); Carbon Dioxide 21 mmol/L (22-29); Chloride 101 mmol/L (98-107); Estimated GFR 83; Glucose 205 mg/dL (70-105); Protein, Total 8.1 g/dL (6.0-8.3); Sodium 134 mmol/L (136-145)
[2023-11-20] MEDS ORDERED: Iopamidol-370 76% 500 ML MDV (1 ML CHARGE) ONE (13:22)
== END 2023-11-20 07:29 | disposition home or self-care (01) ==
LOC: ERS 07:16
DX: B34.9 Viral infection, unspecified (principal); E78.00 Pure hypercholesterolemia, unspecified; E11.40 Type 2 diabetes mellitus with diabetic neuropathy, unspecified; J44.9 Chronic obstructive pulmonary disease, unspecified; F17.210 Nicotine dependence, cigarettes, uncomplicated; Z79.899 Other long term (current) drug therapy; Z79.85 Long-term (current) use of injectable non-insulin antidiabetic drugs
CPT/HCPCS: 70491; 80053; 85025; 87081; 87430; J1100; Q9967

== ENCOUNTER 2024-04-23 18:45 | Emergency (ER) | payer OTHER | END 2024-04-23 23:15 | disposition home or self-care (01) | LOC: ERS 18:45 | DX: M54.50 Low back pain, unspecified (principal); M25.552 Pain in left hip; M25.551 Pain in right hip; M25.562 Pain in left knee; E11.40 Type 2 diabetes mellitus with diabetic neuropathy, unspecified; F17.210 Nicotine dependence, cigarettes, uncomplicated; W01.10XA Fall on same level from slipping, tripping and stumbling with subsequent striking against unspecified object, initial encounter | CPT/HCPCS: 72100; 81001 ==

== ENCOUNTER 2024-08-18 04:59 | Emergency (ER) | payer OTHER ==
[2024-08-18] MEDS ORDERED: Acetaminophen 500 MG TAB ONE (05:42)
[2024-08-18 06:01] LABS: #Basophils Less than 0.03 10x3/uL (0.0-0.2); %Basophils 0.2 % (0.0-1.0); %Eosinophils 0.4 % (0.0-10.0); %Lymphocytes 11.6 % (21.0-51.0); %Monocytes 6.4 % (0.0-10.0); %Neutrophils 81.1 % (42.0-75.0); Hematocrit 36.4 % (36.0-47.0); Hemoglobin 11.4 g/dL (12.0-16.0); Mean Corpuscular HGB CONC 31.3 g/dL (32.0-36.0); Mean Corpuscular Volume 83.1 fL (78.0-98.0); Platelet Count 195 10x3/uL (130-400); Red Blood Cell (RBC) Count 4.38 mill/uL (4.20-5.40)
[2024-08-18 06:17] LABS: ALT (SGPT) 22 U/L (8-55); AST (SGOT) 20 U/L (5-34); Albumin 3.6 g/dL (3.5-5.0); Alkaline Phosphatase 74 U/L (40-110); Anion Gap 15 mmol/L (10-20); BUN (Urea Nitrogen) 10 mg/dL (9.8-20.1); Bilirubin, Total 0.2 mg/dL (0.2-1.2); Calc. Creatinine Clearance 0 mL/min (70-130); Calcium 9.3 mg/dL (7.8-10.44); Carbon Dioxide 26 mmol/L (22-29); Chloride 103 mmol/L (98-107); Estimated GFR 81; Globulin 3.6 g/dL (2.4-3.5); Glucose 196 mg/dL (70-105); Potassium 3.6 mmol/L (3.5-5.1); Protein, Total 7.2 g/dL (6.0-8.3); Sodium 140 mmol/L (136-145)
== END 2024-08-18 06:57 | disposition home or self-care (01) ==
LOC: ERS 04:59
DX: J18.9 Pneumonia, unspecified organism (principal); E11.40 Type 2 diabetes mellitus with diabetic neuropathy, unspecified; J44.9 Chronic obstructive pulmonary disease, unspecified; F17.210 Nicotine dependence, cigarettes, uncomplicated; Z55.0 Illiteracy and low-level literacy
CPT/HCPCS: 36415; 71045; 80053; 85025; 87081; 87428; 87430

== ENCOUNTER 2024-08-24 07:18 | Outpatient (CLI) | payer OTHER | END 2024-08-24 07:19 | disposition home or self-care (01) | LOC: RAD 07:18 | PROVIDERS: ATTEND Internal Medicine Critical Care Medicine | DX: R06.00 Dyspnea, unspecified (principal) | CPT/HCPCS: 71046 ==

== ENCOUNTER 2024-09-13 13:44 | Outpatient (CLI) | payer OTHER | END 2024-09-13 13:45 | disposition home or self-care (01) | LOC: BICMAMMO 13:44 | PROVIDERS: ATTEND Student in an Organized Health Care Education/Training Program | DX: Z12.31 Encounter for screening mammogram for malignant neoplasm of breast (principal); Z13.820 Encounter for screening for osteoporosis; Z12.2 Encounter for screening for malignant neoplasm of respiratory organs; E11.36 Type 2 diabetes mellitus with diabetic cataract; F17.211 Nicotine dependence, cigarettes, in remission; R91.8 Other nonspecific abnormal finding of lung field | CPT/HCPCS: 71271; 77067; 77080 ==

== ENCOUNTER 2025-07-23 02:51 | Emergency (ER) | payer MEDICAID | END 2025-07-23 03:33 | disposition home or self-care (01) | LOC: ERS 02:51 | DX: L25.9 Unspecified contact dermatitis, unspecified cause (principal); F41.9 Anxiety disorder, unspecified; J44.9 Chronic obstructive pulmonary disease, unspecified; E11.40 Type 2 diabetes mellitus with diabetic neuropathy, unspecified; F17.210 Nicotine dependence, cigarettes, uncomplicated | CPT/HCPCS: 99282 ==

== ENCOUNTER 2025-10-16 15:43 | Emergency (ER) | payer MEDICAID ==
[2025-10-16 16:58] LABS: Bacteria/HPF None Seen HPF (None Seen); Glucose, Urine (Dipstick) Greater than 1000 mg/dL (Negative); Leukocyte Negative Leu/uL (Negative); Protein, Urine (Dipstick) 50 mg/dL (Neg-Trace); RBC/HPF None Seen HPF (0-3); Specific Gravity, Urine 1.027 (1.002-1.036); WBC/HPF None Seen HPF (0-3)
[2025-10-16 17:46] LABS: #Basophils 0.05 10x3/uL (0.0-0.2); #Eosinophils 0.07 10x3/uL (0.0-0.7); #Monocytes 0.34 10x3/uL (0.11-0.59); #Neutrophils 4.35 10x3/uL (1.40-6.50); %Basophils 0.6 % (0.0-1.0); %Eosinophils 0.9 % (0.0-10.0); %Lymphocytes 37.5 % (21.0-51.0); %Monocytes 4.4 % (0.0-10.0); %Neutrophils 56.3 % (42.0-75.0); Hematocrit 42.9 % (36.0-47.0); Hemoglobin 13.1 g/dL (12.0-16.0); Mean Corpuscular Hemoglobin 26.1 pg (27.0-31.0); Mean Corpuscular Volume 85.5 fL (78.0-98.0); Platelet Count 232 10x3/uL (130-400); Red Blood Cell (RBC) Count 5.02 mill/uL (4.20-5.40); White Blood Cell (WBC) Count 7.73 10x3/uL (4.8-10.8)
[2025-10-16 18:00] LABS: ALT (SGPT) 16 U/L (Less than 34); AST (SGOT) 17 U/L (11-34); Albumin 3.7 g/dL (3.1-4.5); Alkaline Phosphatase 78 U/L (40-110); Anion Gap 12 mmol/L (10-20); BUN (Urea Nitrogen) 14 mg/dL (9.8-20.1); Bilirubin, Total 0.2 mg/dL (0.3-1.2); Calc. Creatinine Clearance 0 mL/min (70-130); Calcium 9.3 mg/dL (7.8-10.44); Carbon Dioxide 28 mmol/L (22-29); Chloride 105 mmol/L (98-107); Globulin 3.9 g/dL (2.4-3.5); Glucose 274 mg/dL (70-105); Potassium 4.7 mmol/L (3.5-5.1); Sodium 140 mmol/L (136-145)
[2025-10-17 12:14] LABS: Chlamydia by PCR, Vaginal Swab *Indeterminate (NotDetected); GC by PCR, Vaginal Swab *Indeterminate (NotDetected)
== END 2025-10-16 19:27 | disposition home or self-care (01) ==
LOC: ERS 15:43
DX: J06.9 Acute upper respiratory infection, unspecified (principal); N76.0 Acute vaginitis; J44.9 Chronic obstructive pulmonary disease, unspecified; E11.40 Type 2 diabetes mellitus with diabetic neuropathy, unspecified; E78.00 Pure hypercholesterolemia, unspecified; Z79.899 Other long term (current) drug therapy
CPT/HCPCS: 36415; 80053; 81001; 85025; 87428; 87480; 87491; 87510; 87591; 87660; 99283; Q0162